=== PATIENT | female | born 1990 | race Caucasian/White ===

== ENCOUNTER 2023-09-28 13:37 | Outpatient (OUT) | payer BC, SELFPAY ==
--- NOTE | 2023-09-28 13:46 | US_ITS ---
[address] [address] Patient Name: CARLA JOHNSON MRN: [id number] date: 1990 Sex: F Assigned Patient Location: [place] Current Patient Location: [place] Accession/Order Number: [id number] Exam Date: 09/28/2023 13:55 Report Date: 09/28/2023 15:28 At the request of: NON-STAFF PHYSICIAN Procedure: US venous doppler LE RT EXAM: US venous doppler LE RT HISTORY: Right Leg Swelling COMPARISON: None. TECHNIQUE: Grayscale, color and Doppler FINDINGS: Region: Right leg Thrombus: None Flow: Normal Compressibility: Normal Augmentation: Normal US/US venous doppler LE RT IMPRESSION: No deep or superficial vein thrombus identified in the right leg Electronically authenticated by: ANKUR CABRERA Date: 09/28/2023 15:28
== END 2023-09-28 13:38 | disposition home or self-care (01) ==
LOC: US 13:41
DX: M79.89 Other specified soft tissue disorders (principal)
CPT/HCPCS: 93971

== ENCOUNTER 2024-01-04 13:24 | Outpatient (OUT) | payer BC, SELFPAY | END 2024-01-04 13:25 | disposition home or self-care (01) | LOC: CARD 13:28 | DX: R00.2 Palpitations (principal) | CPT/HCPCS: 93246 ==

== ENCOUNTER 2024-08-10 12:43 | Emergency (ER) | payer SELFPAY ==
[2024-08-10 13:14] VITALS: BP 112/71; PULSE 102; TEMP 37.6; O2SAT 97; BMI 24.3
--- NOTE | 2024-08-10 13:55 | ED.URI1 ---
HPI - URI/Sore Throat General Chief Complaint: Upper Respiratory Infection Stated Complaint: URTI COMPLAINTS Time Seen by Provider: 08/10/24 13:20 Source: patient History of Present Illness HPI Narrative: Patient is a 34-year-old female who presents to the emergency department for evaluation of cough, congestion, sore throat for the last week. She is a regular smoker. She denies a possibility of . She has had no fevers or vomiting. She reports back pain with coughing. She states she tried to go to urgent care but they needed money upfront and she recently lost her job and has no insurance so she came to the emergency department for care. She is breathing easily in no distress at initial interview Related Data Previous Rx's ?Medication ?Instructions ?Recorded albuterol sulfate 90 mcg/actuation 2 inh inhalation Q4H PRN shortness 08/10/24 aerosol inhaler of breath or wheezing #8.5 grams doxycycline hyclate 100 mg tablet 100 mg PO BID 10 days #20 tabs 08/10/24 prednisone 20 mg tablet 60 mg (3 x 20 mg) PO DAILY 5 days 08/10/24 #15 tabs Allergies Allergy/AdvReac Type Severity Reaction Status Date / Time No Known Drug Allergies Allergy Verified 08/10/24 13:14 Review of Systems ROS Constitutional Denies: fever or chills Ears, nose, mouth, and throat Reports: throat pain and nasal congestion Cardiovascular Denies: chest pain Respiratory Reports: cough, wheezing and change in phlegm color; Denies: shortness of breath Gastrointestinal Denies: abdominal pain, nausea or vomiting Musculoskeletal Denies: back pain Integumentary/Breast Denies: rash Neurological Denies: headache Hematologic/Lymphatic Denies: easy bruising or easy bleeding PFSH PFSH Social History Little interest or pleasure in doing things: not at all Feeling down, depressed, or hopeless: not at all Exam Narrative Exam Narrative: Gen.: Awake, alert, in no distress Head: Normocephalic, atraumatic ENT: Moist mucous membranes, cobblestoning noted in the posterior pharynx Respiratory: No respiratory distress, inspiratory and expiratory wheezing globally Cardio: Regular rate and rhythm Extremities: Moves extremities equally Psych: Normal mood and affect Neuro: No focal neuro deficit Skin: Warm, dry, intact Constitutional Vital Signs, click to edit/add: Last Vital Signs Temp 99.7 F 08/10/24 13:14 Pulse 102 H 08/10/24 13:14 Resp 20 08/10/24 13:14 BP 112/71 08/10/24 13:14 Pulse Ox 97 08/10/24 13:14 O2 Del Method Room Air 08/10/24 13:14 Course Vital Signs Vital signs: Vital Signs Temperature 99.7 F 08/10/24 13:14 Pulse Rate 102 H 08/10/24 13:14 Respiratory Rate 20 08/10/24 13:14 Blood Pressure 112/71 08/10/24 13:14 Pulse Oximetry 97 08/10/24 13:14 Oxygen Delivery Method Room Air 08/10/24 13:14 Temperature 99.7 F 08/10/24 13:14 Pulse Rate 102 H 08/10/24 13:14 Respiratory Rate 20 08/10/24 13:14 Blood Pressure 112/71 08/10/24 13:14 Pulse Oximetry 97 08/10/24 13:14 Oxygen Delivery Method Room Air 08/10/24 13:14 MDM - URI/Sore Throat MDM Narrative Medical decision making narrative: Patient treated based on duration of symptoms with antibiotics, steroids and given a breathing treatment in the ER. She is given an albuterol inhaler to go and prescriptions for doxycycline and prednisone. Discussed a chest x-ray, patient is agreeable to deferring as she does not have insurance and I feel this is reasonable as her vital signs are stable and she is in no respiratory distress in the ER. Return to the ER if symptoms change or worsen. SUPERVISED APC VISIT, PHYSICIAN ATTESTATION: Based on the medical record the care appears appropriate. ? Medical Records Attestation: I reviewed the patient's medical records. Discharge Plan Discharge Chief Complaint: Upper Respiratory Infection Clinical Impression: Upper respiratory infection Patient Disposition: Home, Self-Care Time of Disposition Decision: 13:53 Condition: Good Prescriptions / Home Meds: New albuterol sulfate 90 mcg/actuation HFA aerosol inhaler 2 inh inhalation Q4H PRN (Reason: shortness of breath or wheezing) Qty: 8.5 0RF doxycycline hyclate 100 mg tablet 100 mg PO BID 10 Days Qty: 20 0RF prednisone 20 mg tablet 60 mg PO DAILY 5 Days Qty: 15 0RF Print Language: Citizen Of [place] Instructions: Upper Respiratory Infection (ED), Wheezing (ED) Additional Instructions: [facility] should have the most inexpensive medications based on the [employer] [facility] website Referrals: Physician,Non-Staff, MD [Primary Care Provider] - 1 week
[2024-08-10] MEDS: ALBUTEROL SULFATE 2.5 MG/3 ML VIAL NEB IH (13:57)
== END 2024-08-10 14:10 | disposition home or self-care (01) ==
PROVIDERS: Emergency Provider Emergency Medicine
DX: J06.9 Acute upper respiratory infection, unspecified (principal); F17.200 Nicotine dependence, unspecified, uncomplicated
CPT/HCPCS: 94640; 99284